=== PATIENT | female | born 1950 ===

== ENCOUNTER 2017-11-11 16:37 | Emergency (ER) | payer OTHER ==
[~2017-11-11] VITALS: Ht 152.4 cm; Wt 63.5 kg
[~2017-11-11 16:37] MED LIST: OMEPRAZOLE20 MG PO; ULTRACET PO
[2017-11-11] MEDS ORDERED: COZAAR50 MG PO (16:51)
[2017-11-11] MEDS ORDERED: TOPROL XL100 M1 PO (16:51)
== END 2017-11-11 22:14 | disposition home or self-care (01) ==
LOC: ER 16:37
DX: K21.9 Gastro-esophageal reflux disease without esophagitis (principal)